=== PATIENT | male | born 1955 | race Asian ===

== ENCOUNTER 2022-08-27 01:05 | Emergency (ER) | payer MEDICAID ==
[~2022-08-27] VITALS: Ht 177.8 cm; Wt 84.8 kg
[2022-08-27] MEDS ORDERED: HYDROCODONE/APAP 10-325 MG TABLET PO ONE (02:15)
[2022-08-27] MEDS ORDERED: CEFAZOLIN 1 G in IV DEXTROSE 5% 50 ML IV ONE (02:15)
[2022-08-27] MEDS ORDERED: CEFAZOLIN 1 G VIAL ONE (02:26)
[2022-08-27] MEDS ORDERED: HYDROCODONE/APAP 10-325 MG TABLET ONE (02:26)
[2022-08-27 02:51] LABS: MEAN CORPUSCULAR HEMOGLOBIN 31.8 uug (23.8-33.4); MEAN CORPUSCULAR VOLUME 94.9 fL (73.0-96.2); PLATELET COUNT (AUTO) 182 K/uL (152-348)
[2022-08-27 02:53] LABS: CREATININE 0.8 mg/dL (0.6-1.3); POTASSIUM 3.7 mmol/L (3.5-5.1)
[2022-08-27] MEDS ORDERED: ERYT250T65 PO (02:54)
[2022-08-27] MEDS ORDERED: HYDR-3972 PO (02:54)
[2022-08-27 05:23] VITALS: BP 145/77
== END 2022-08-27 05:23 | disposition home or self-care (01) ==
LOC: ER 01:17
DX: L03.116 Cellulitis of left lower limb (principal); Z89.422 Acquired absence of other left toe(s); F17.210 Nicotine dependence, cigarettes, uncomplicated; Z59.00 Homelessness unspecified
CPT/HCPCS: 99284; 96365; 99406; 80048; 85025; 36415; J0690; A4663